=== PATIENT | male | born 2000 | race Two or more races ===

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

== ENCOUNTER 2021-03-31 10:08 | Emergency (ER) | payer OTHER ==
[~2021-03-31] VITALS: Ht 177.8 cm; Wt 73.0 kg
[2021-03-31] MEDS ORDERED: IV RINGERS SOLUTION,LACTATED 1,000 ML IV ONE (11:00)
[2021-03-31] MEDS ORDERED: ONDANSETRON PF 4 MG/2 ML VIAL. IVP ONE (11:00)
[2021-03-31 11:27] LABS: BASO % 1 % (0-3); EOS # 0.1 x10^3/uL (0.0-0.7); EOS % 1 % (0-3); HEMATOCRIT 51.4 % (39.0-53.0); HEMOGLOBIN 17.4 g/dL (13.0-17.5); LYMPH # 1.8 x10^3/uL (1.0-4.8); LYMPH % 33 % (24-48); MEAN CORPUSCULAR HEMOGLOBIN 31 pg (25-35); MEAN CORPUSCULAR HGB CONC 34 g/dL (31-37); MEAN CORPUSCULAR VOLUME 92 fL (79-100); MONO # 0.6 x10^3/uL (0.0-1.1); MONO % 10 % (0-9); NEUT # 3.1 x10^3uL (1.8-7.7); NEUT % 56 % (31-73); PLATELET COUNT 210 x10^3/uL (140-400); RED BLOOD COUNT 5.57 x10^6/uL (4.30-5.70); RED CELL DISTRIBUTION WIDTH 14.3 % (11.5-14.5); WHITE BLOOD COUNT 5.6 x10^3/uL (4.0-11.0)
[2021-03-31 11:28] LABS: CALCIUM 9.6 mg/dL (8.5-10.1); GFR 96.3; POTASSIUM 4.1 mmol/L (3.5-5.1)
[2021-03-31 11:34] LABS: ALBUMIN 4.4 g/dL (3.4-5.0); ALBUMIN/GLOBULIN RATIO 1.1 (1.0-1.7); TOTAL BILIRUBIN 0.6 mg/dL (0.2-1.0); TOTAL PROTEIN 8.5 g/dL (6.4-8.2)
--- NOTE | 2021-03-31 11:36 | RAD ---
Exam Date: 03/31/2021 10:59 AM XR CHEST 1V Indication: Reason: hematemesis / Spl. Instructions: / History: . Comparison: February 17, 2019 FINDINGS/ IMPRESSION: The cardiac silhouette and pulmonary vasculature are within normal limits. There is no focal consolidation, pleural effusion or pneumothorax. The visualized osseous structures are intact. Electronically signed by: Dean Vu MD (03/31/2021 11:34 AM) [facility]
--- NOTE | 2021-03-31 11:56 | PHYS DOC ---
Past History Past Medical History: Asthma (CHUY GONZALEZ) Past Surgical History: No Surgical History (CHUY GONZALEZ) Smoking: Cigarettes, Less than 1pk/day Alcohol Use: Occasionally Drug Use: Marijuana (CHUY GONZALEZ) General Adult EDM: Chief Complaint: HEMATEMESIS/VOMITING BLOOD HPI: HPI: Patient is a 20 year old male who presents with 2 episodes of hematemesis. Patient states that this morning, before he left for work he vomited twice. Vomitus included food that he ate last night, blood and "dark yellow-green" bile. After these 2 episodes, patient had 3 episodes of emesis of bile only without blood. Patient reports associated nausea. He denies any diarrhea or abdominal pain. Patient states that he was drinking jerome that he split with his brother last night. He reports retching prior to vomiting and now has a "scratchy" throat. Patient denies fever, chills, weakness. Patient has no other complaints at this time. (CHUY GONZALEZ) Review of Systems: Review of Systems: Constitutional: See HPI Respiratory: Denies cough or shortness of breath Cardiovascular: Denies chest pain or edema GI: See HPI : Denies dysuria or hematuria Musculoskeletal: Denies back pain or joint pain All other systems reviewed and are negative unless otherwise documented in this note. (CHUY GONZALEZ) Current Medications: Current Meds: Current Medications Medications (Trade) Dose Ordered Sig/[facility] Start Time Stop Time Status Last Admin Dose Admin Lactated Ringer's 1,000 ml @ 75 mls/hr 1X ONCE 03/31/21 11:00 04/01/21 00:19 03/31/21 11:13 75 MLS/HR Ondansetron HCl (Zofran) 4 mg 1X ONCE 03/31/21 11:00 03/31/21 11:02 DC 03/31/21 11:14 4 MG (CHUY GONZALEZ) Allergies: Allergies: Allergies Coded Allergies Type Severity Reaction Last Updated Verified No Known Drug Allergies 05/10/20 No (CHYU GONZALEZ) Physical Exam: PE: Constitutional: Well developed, well nourished, no acute distress, non-toxic appearance. HENT: Normocephalic, atraumatic, bilateral external ears normal, oropharynx mois t, no oral exudates, nose normal. Neck: Normal range of motion, no tenderness, no stridor. Cardiovascular: Heart rate regular rhythm, no murmur. Lungs & Thorax: Bilateral breath sounds clear to auscultation. Abdomen: Bowel sounds normal, soft, no tenderness, no masses, no pulsatile masses. Skin: Warm, dry, no erythema, no rash. Neurologic: Alert and oriented x3, normal motor function, normal sensory function, no focal deficits noted. (CHUY GONZALEZ) Current Patient Data: Labs: Laboratory Tests Test 03/31/21 10:50 White Blood Count 5.6 x10^3/uL (4.0-11.0) Red Blood Count 5.57 x10^6/uL (4.30-5.70) Hemoglobin 17.4 g/dL (13.0-17.5) Hematocrit 51.4 % (39.0-53.0) Mean Corpuscular Volume 92 fL (79-100) Mean Corpuscular Hemoglobin 31 pg (25-35) Mean Corpuscular Hemoglobin Concent 34 g/dL (31-37) Red Cell Distribution Width 14.3 % (11.5-14.5) Platelet Count 210 x10^3/uL (140-400) Neutrophils (%) (Auto) 56 % (31-73) Lymphocytes (%) (Auto) 33 % (24-48) Monocytes (%) (Auto) 10 % (0-9) H Eosinophils (%) (Auto) 1 % (0-3) Basophils (%) (Auto) 1 % (0-3) Neutrophils # (Auto) 3.1 x10^3uL (1.8-7.7) Lymphocytes # (Auto) 1.8 x10^3/uL (1.0-4.8) Monocytes # (Auto) 0.6 x10^3/uL (0.0-1.1) Eosinophils # (Auto) 0.1 x10^3/uL (0.0-0.7) Basophils # (Auto) 0.0 x10^3/uL (0.0-0.2) Sodium Level 140 mmol/L (136-145) Potassium Level 4.1 mmol/L (3.5-5.1) Chloride Level 101 mmol/L (98-107) Carbon Dioxide Level 31 mmol/L (21-32) Anion Gap 8 (6-14) Blood Urea Nitrogen 10 mg/dL (8-26) Creatinine 1.0 mg/dL (0.7-1.3) Estimated GFR (Cockcroft-Gault) 96.3 BUN/Creatinine Ratio 10 (6-20) Glucose Level 115 mg/dL (70-99) H Calcium Level 9.6 mg/dL (8.5-10.1) Total Bilirubin 0.6 mg/dL (0.2-1.0) Aspartate Amino Transferase (AST) 41 U/L (15-37) H Alanine Aminotransferase (ALT) 55 U/L (16-63) Alkaline Phosphatase 74 U/L (46-116) Total Protein 8.5 g/dL (6.4-8.2) H Albumin 4.4 g/dL (3.4-5.0) Albumin/Globulin Ratio 1.1 (1.0-1.7) Lipase 63 U/L (73-393) L Vital Signs: Vital Signs Date Time Temp Pulse Resp B/P (MAP) Pulse Ox O2 Delivery O2 Flow Rate FiO2 03/31/21 10:27 97.7 86 16 133/89 (104) 99 Room Air ([facility]) Radiology/Procedures: Radiology/Procedures: PROCEDURE: PORTABLE CHEST 1V Exam Date: 03/31/2021 10:59 AM XR CHEST 1V Indication: Reason: hematemesis / Spl. Instructions: / History: . Comparison: February 17, 2019 FINDINGS/ IMPRESSION: The cardiac silhouette and pulmonary vasculature are within normal limits. There is no focal consolidation, pleural effusion or pneumothorax. The visualized osseous structures are intact. Electronically signed by: Dean Vu MD (03/31/2021 11:34 AM) [facility] PROCEDURE: CT CHEST W/CONTRAST EXAM: CT CHEST WITH CONTRAST HISTORY: Hematemesis COMPARISON: Chest radiograph same day TECHNIQUE: Helical CT of the chest performed after administration of intravenous contrast. Coronal and sagittal reformats were obtained. One or more of the following individualized dose reduction techniques were utilized for this examination: 1. Automated exposure control 2. Adjustment of the mA and/or kV according to patient size 3. Use of iterative reconstruction technique. FINDINGS: Thyroid gland and thoracic inlet: Normal. Heart and great vessels: The heart is normal in size. No pericardial effusion. Thoracic aorta is normal in caliber. Central pulmonary arteries are clear. Mediastinum and faye: There is no mediastinal or hilar lymphadenopathy. The esophagus is normal in appearance. Lungs and pleura: The lungs are clear. Central airways are clear. No pleural effusion. Chest wall and axillae: No axillary lymphadenopathy. Chest wall is unremarkable. Upper abdomen: Unremarkable. Bones: No acute osseous abnormality. IMPRESSION: Normal CT of the chest. Electronically signed by: Sheree Thomas MD (03/31/2021 1:08 PM) [id number] (CHUY GONZALEZ) Heart Score: C/O Chest Pain: No (CHUY GONZALEZ) Course & Med Decision Making: Course & Med Decision Making Pertinent Labs and Imaging studies reviewed. (See chart for details) Patient presents with history concerning for esophageal bleed. Patient work-up will include CBC, CMP, UA, chest x-ray and CT of the chest. Patient, patient states that he feels improved after Zofran. Informed him that there are no esophageal tears or varices that otherwise cause gross hematemesis. Patient is advised to stick to a clear liquid diet until symptoms resolve and advance as tolerated. Patient understands and is agreeable to discharge plan. (CHUY GONZALEZ) Course & Med Decision Making Did not see or evaluate patient. Did not discuss patient with PA. Agree with PAs work-up and disposition per note. (FRANCESCO HERNANDEZ MD) Dragon Disclaimer: Dragon Disclaimer: This electronic medical record was generated, in whole or in part, using a voice recognition dictation system. (CHUY GONZALEZ) Departure Departure: Impression: Primary Impression: Vomiting in adult Additional Impression: History of hematemesis Disposition: HOME / SELF CARE / HOMELESS Condition: STABLE Referrals: LORETTA INGRAM DO (PCP) LEYDA CONLEY MD Patient Instructions: Nausea and Vomiting, [id number] Additional Instructions: Your work-up today did not reveal any blood loss requiring medical attention or transfusion. For the time being, adhere to a clear liquid diet until you are able to tolerate foods such as bananas, rice, applesauce, toast/crackers. You may return to your normal diet as tolerated. Please return to the emergency department if your symptoms persist or you develop new symptoms. Scripts Ondansetron (ONDANSETRON ODT) 4 Mg Tab.rapdis 1 TAB PO PRN Q6-8HRS for nausea, #20 TAB Prov: CHUY GONZALEZ 03/31/21 CHUY GONZALEZ Mar 31, 2021 11:56 FRANCESCO HERNANDEZ MD Mar 31, 2021 13:52
[2021-03-31] MEDS ORDERED: IOHEXOL 300 MG/ML 75 ML VIAL. IV ONE (12:15)
[2021-03-31] MEDS ORDERED: CONTRAST GIVEN. MC PRN (12:15)
--- NOTE | 2021-03-31 13:11 | RAD ---
EXAM: CT CHEST WITH CONTRAST HISTORY: Hematemesis COMPARISON: Chest radiograph same day TECHNIQUE: Helical CT of the chest performed after administration of intravenous contrast. Coronal a nd sagittal reformats were obtained. One or more of the following individualized dose reduction techniques were utilized for this examinat ion: 1. Automated exposure control 2. Adjustment of the mA and/or kV according to patient size 3. Use of iterative reconstruction technique. FINDINGS: Thyroid gland and thoracic inlet: Normal. Heart and great vessels: The heart is normal in size. No pericardial effusion. Thoracic aorta is norm al in caliber. Central pulmonary arteries are clear. Mediastinum and faye: There is no mediastinal or hilar lymphadenopathy. The esophagus is normal in ap pearance. Lungs and pleura: The lungs are clear. Central airways are clear. No pleural effusion. Chest wall and axillae: No axillary lymphadenopathy. Chest wall is unremarkable. Upper abdomen: Unremarkable. Bones: No acute osseous abnormality. IMPRESSION: Normal CT of the chest. Electronically signed by: Sheree Thomas MD (03/31/2021 1:08 PM) [id number]
[2021-03-31] MEDS ORDERED: ONDA4TAB12 PO (13:38)
[2021-03-31 13:45] VITALS: BP 122/80
== END 2021-03-31 13:56 | disposition home or self-care (01) ==
LOC: ER 10:08
DX: K92.0 Hematemesis (principal); J45.909 Unspecified asthma, uncomplicated; F17.210 Nicotine dependence, cigarettes, uncomplicated; F12.10 Cannabis abuse, uncomplicated
CPT/HCPCS: 36415; 71045; 71260; 80053; 83690; 85025; 96361; 96374; 99285; J2405; J7120; Q9967